=== PATIENT | female | born 1940 | race Caucasian/White ===

== ENCOUNTER 2019-11-01 18:47 | Emergency (ER) | payer MEDICARE, BC ==
[2019-11-01] MEDS ORDERED: Adacel (T-DAP) 0.5 ML SYRINGE ONE (20:03)
[2019-11-01] MEDS ORDERED: Lidocaine 1% PF 5 ML VIAL ONE (20:15)
--- NOTE | 2019-11-01 20:44 | CT ---
CT OF THE CERVICAL SPINE 11/01/[address] of the cervical spine was done following trauma. Axial slices were acquired followed by cor onal and sagittal reconstructions. No fracture or dislocation was seen at any cervical level. The C1 to dens distance is normal and the soft tissues are normal in thickness. There is loss of the normal cervical lordosis which may be due to muscle spasm. Slight disc space narrowing is present at C2-C3 and more prominent narrowing is seen at C5-C6 and to a lesser extent C6-C7. Findings by level follow: C1-C2: No acute findings. C2-C3: No acute findings. C3-C4: Some left facet arthritis. C4-C5: Mild right foraminal stenosis due to osteophytes. C5-C6: Moderate left foraminal stenosis due to osteophytes. C6-C7: Slight right foraminal stenosis. C7-T1: No acute findings. T1-T2: No acute findings. T2-T3: No acute findings. On the left last slice of the series, there was an area of very slight increased density in the media l part of the right upper lobe. This is indeterminate and could even be volume averaging with the aor ta that is immediately below it. Nothing else can be said on the basis of this scan. IMPRESSION: Loss of normal cervical lordosis which may be due to muscle spasm. Degenerative changes as noted but no acute traumatic findings otherwise. Preliminary report called to Dr. Solo at 2004 on 11/01/19. POS: HOME
--- NOTE | 2019-11-01 20:46 | CT ---
CT OF THE BRAIN WITHOUT CONTRAST: 11/01/19 The ventricles are normal in size for age and atrophy. There is no ventricular shift. No intracranial bleeding or extra-axial hematoma was seen. There is no sign of mass, stroke or edema. The skull appe ars intact and the visible paranasal sinuses and mastoid air cells are clear. IMPRESSION: No acute intracranial findings. Preliminary report called to Dr. Solo at 2004 on 11/01/19. POS: HOME
== END 2019-11-01 21:30 | disposition home or self-care (01) ==
LOC: BURERS 18:47
DX: S06.0X0A Concussion without loss of consciousness, initial encounter (principal); S01.01XA Laceration without foreign body of scalp, initial encounter; W18.30XA Fall on same level, unspecified, initial encounter
CPT/HCPCS: 12002; 70450; 72125; 90471; 90715